=== PATIENT | female | born 1970 | race Caucasian/White ===

== ENCOUNTER 2019-03-16 09:41 | Day surgery (SDC) | payer BC ==
[~2019-03-16] VITALS: Ht 162.6 cm; Wt 84.4 kg
[~2019-03-16 09:41] MED LIST: ESCI20 PO; Estradiol0.5 MG PO; FURO20 PO
[2019-03-16] MEDS ORDERED: POTA10T PO (11:07)
--- NOTE | 2019-03-16 14:10 | NUR ---
03/16/[address] IN TO SEE PT PRIOR TO DC HOME AND RX CHANGED FROM [facility] TO [facility]. PT WAS DC'D IN STABLE CONDITION WITH NO C/O NAUSEA AND PAIN "MASKED FOR NOW". RX GIVEN FOR PT TO FILL. TO CAR VIA WC WITH MINIMAL ASSIST INTO VEHICLE. REUSEABLE ICE PACK W/INSTRUCTIONS FOR USE GIVEN
== END 2019-03-16 13:55 | disposition home or self-care (01) ==
LOC: ORSCSDS 09:41
PROVIDERS: Podiatrist Foot & Ankle Surgery
PROC: 0QSK04Z Reposition Left Fibula with Internal Fixation Device, Open Approach (ICD-10-PCS; principal; 2019-03-16 11:15)
DX: S82.62XA Displaced fracture of lateral malleolus of left fibula, initial encounter for closed fracture (principal); Z87.891 Personal history of nicotine dependence; Z79.899 Other long term (current) drug therapy
CPT/HCPCS: A9270-GY; C1713; J0171; J0690; J1100; J2250; J2370; J2405; J2704; J3010; J7120